=== PATIENT | female | born 1990 | race Caucasian/White ===

== ENCOUNTER → 2018-02-13 | Outpatient (CLI) | payer OTHER ==
--- NOTE | 2018-02-13 15:05 | WOMENS IMAGING REPORT ---
EXAM DESCRIPTION: U/S THYROID/ST TIS HEAD NECK COMPLETED DATE/TIME: 02/13/2018 2:42 pm REASON FOR STUDY: U/S THYROID/E04.9 E04.9 NONTOXIC GOITER, UNSPECIFIED COMPARISON: None. TECHNIQUE: Dynamic and static villatoro-scale images acquired of the thyroid gland. Selected additional c olor/power Doppler images recorded. All images stored to PACS. LIMITATIONS: None. FINDINGS: RIGHT LOBE: Borderline size, 5.1 x 1.7 x 1.4 cm. Homogeneous echotexture. There is a 4 m m hypoechoic lesion in the right lobe. LEFT LOBE: Borderline size, 5.1 x 1.4 x 1.3 cm. Homogeneous echotexture. A couple small cystic nodu les are present. The larger measures 4 mm. ISTHMUS: Normal size, 2 mm. Homogeneous echotexture. No cystic or solid masses. OTHER: No other significant finding. IMPRESSION: The gland is slightly elongated but not grossly enlarged. Small low-density lesions are seen in each lobe. Consider six-month follow-up ultrasound for further evaluation. TECHNICAL DOCUMENTATION: JOB ID: [id number] [employer]- All Rights Reserved Reading location - IP/workstation name: [email or web address]
== END ==
LOC: WI 12:56
PROVIDERS: ATTEND Nurse Practitioner Family
DX: E04.9 Nontoxic goiter, unspecified (principal)
CPT/HCPCS: 76536

== ENCOUNTER → 2018-07-20 | Outpatient (CLI) | payer OTHER ==
--- NOTE | 2018-07-20 11:56 | WOMENS IMAGING REPORT ---
EXAM DESCRIPTION: U/S THYROID/ST TIS HEAD NECK COMPLETED DATE/TIME: 07/20/2018 10:13 am REASON FOR STUDY: E04.2 NONTOXIC MULTINODULAR GOITER N64.4 MASTODYNIA E04.2 NONTOXIC MULTINODULAR GOITER COMPARISON: 02/13/2018 TECHNIQUE: Dynamic and static villatoro-scale images acquired of the thyroid gland. Selected additional c olor/power Doppler images recorded. All images stored to PACS. LIMITATIONS: None. FINDINGS: RIGHT LOBE: 5.0 x 1.7 x 1.6 cm. Homogeneous echotexture. Stable 3 mm hypoechoic nodule midpole. LEFT LOBE: 4.8 x 1.4 x 1.2 cm. Homogeneous echotexture. There are 3 small hypoechoic nodules, the l argest 5 mm. ISTHMUS: Normal size. Homogeneous echotexture. No cystic or solid masses. OTHER: No other significant finding. IMPRESSION: Stable thyroid nodules. TECHNICAL DOCUMENTATION: JOB ID: [id number] [employer]- All Rights Reserved Reading location - IP/workstation name: [email or web address]
--- NOTE | 2018-07-20 12:02 | WOMENS IMAGING REPORT ---
EXAM DESCRIPTION: U/S BREAST UNILATERAL, COMPL COMPLETED DATE/TIME: 07/20/2018 10:13 am REASON FOR STUDY: N.64.4 MASTODYNIA N64.4 MASTODYNIA E04.2 NONTOXIC MULTINODULAR GOITER COMPARISON: None. TECHNIQUE: Real-time and static grayscale imaging performed of the left breast targeted to the area of clinical/mammographic concern. Selected color Doppler images recorded. LIMITATIONS: None. FINDINGS: MASS: No mass identified. Normal glandular tissue. OTHER: No other significant finding. IMPRESSION: No suspicious findings detected by ultrasound. BIRAD: Negative. RECOMMENDATION: RECOMMENDED FOLLOW-UP: Follow-up as clinically indicated. COMMENT: The [employer] ([employer]) has developed recommendations for screening MRI of the breasts in certain patient populations, to be used in conjunction with mammography. Breast MRI s urveillance may be appropriate for women with more than 20% lifetime risk of developing breast cancer as determined by genetic testing, significant family history of the disease, or history of mantle r adiation for Hodgkins Disease. ACR Practice Guidelines 2008. TECHNICAL DOCUMENTATION: JOB ID: [id number] [employer]- All Rights Reserved Reading location - IP/workstation name: [email or web address]
== END ==
LOC: WI 09:09
PROVIDERS: ATTEND Nurse Practitioner Family
DX: N64.4 Mastodynia (principal); E04.2 Nontoxic multinodular goiter
CPT/HCPCS: 76536; 76641

== ENCOUNTER → 2019-09-03 | Outpatient (CLI) | payer OTHER ==
--- NOTE | 2019-09-03 09:41 | RADIOLOGY REPORT (SQ) ---
EXAM DESCRIPTION: U/S RETROPERITON (RENAL/AORTA) IMAGES COMPLETED DATE/TIME: 09/03/2019 9:19 am REASON FOR STUDY: OTHER MICROSCOPIC HEMATURIA R31.29 OTHER MICROSCOPIC HEMATURIA COMPARISON: None. TECHNIQUE: Dynamic and static grayscale images acquired of the kidneys and bladder and recorded on P ACS. Additional selected color Doppler and spectral images recorded. LIMITATIONS: None. FINDINGS: RIGHT KIDNEY: The right kidney measures 11.3 cm in length. The echogenicity of the renal parenchyma is normal. The corticomedullary differentiation is preserved. There is no hydronephrosis , calcification or mass. LEFT KIDNEY: The left kidney measures 10.7 cm in length. The echogenicity of the renal parenchyma i s normal. The corticomedullary differentiation is preserved. There is no hydronephrosis, calcificat ion or mass. BLADDER: No abnormality. OTHER FINDINGS: No other finding. IMPRESSION: No abnormality of the kidneys or urinary bladder. TECHNICAL DOCUMENTATION: JOB ID: [id number] 2010 [employer]- All Rights Reserved Reading location - IP/workstation name: [email or web address]
== END ==
LOC: RAD 08:58
PROVIDERS: ATTEND Nurse Practitioner Family
DX: R31.29 Other microscopic hematuria (principal)
CPT/HCPCS: 76770

== ENCOUNTER → 2019-10-20 | Outpatient (CLI) | payer OTHER ==
--- NOTE | 2019-10-20 16:47 | RADIOLOGY REPORT (SQ) ---
EXAM DESCRIPTION: U/S THYROID/SFT TISS HD NECK IMAGES COMPLETED DATE/TIME: 10/20/2019 4:16 pm REASON FOR STUDY: E04.2 NONTOXIC MULTINODULAR GOITER E04.2 NONTOXIC MULTINODULAR GOITER COMPARISON: 07/20/2018 TECHNIQUE: Dynamic and static villatoro-scale images acquired of the thyroid gland. Selected additional c olor/power Doppler images recorded. All images stored to PACS. LIMITATIONS: None. FINDINGS: RIGHT LOBE: Normal size. Homogeneous echotexture. There is a solitary well circumscribed spongiform hypoechoic nodule measuring 6 x 3 x 3 mm. Wider than tall. LEFT LOBE: Normal size. Homogeneous echotexture. There are 2 similar-appearing well-circumscribed s pongiform nodules, both measuring around 3 x 3 x 2 mm. ISTHMUS: Normal size. Homogeneous echotexture. No cystic or solid masses. OTHER: No other significant finding. IMPRESSION: Bilateral nodules. Slight increase in size of nodule in the right lobe but still low barakat spicion. COMMENT: TI-RADS 2 TECHNICAL DOCUMENTATION: JOB ID: [id number] 2010 [employer]- All Rights Reserved Reading location - IP/workstation name: [email or web address]
== END ==
LOC: RAD 15:50
PROVIDERS: ATTEND Nurse Practitioner Family
DX: E04.2 Nontoxic multinodular goiter (principal)
CPT/HCPCS: 76536